=== PATIENT | female | born 1950 | race Hispanic/Latino ===

== ENCOUNTER 2017-03-20 09:29 | Day surgery (SDC) | payer OTHER ==
[2017-03-20 09:29] VITALS: BMI 41.6
[2017-03-20] MEDS ORDERED: Bacitracin 500 Units/gm Oint Foilpak UD TOP ONE (10:23)
[2017-03-20] MEDS ORDERED: Bacitracin 500 Units/gm Oint Foilpak UD ONE (11:11)
[2017-03-20 11:28] LABS: BASO % 0.4 % (0.0-2.0); EOS # 0.1 K/uL (0.0-0.7); EOS % 2.5 % (0.0-4.0); HEMATOCRIT 39.8 % (34.0-47.0); LYMPH # 0.7 K/uL (1.0-4.3); LYMPH % 12.3 % (20.0-40.0); MEAN CORPUSCULAR HEMOGLOBIN 27.2 pg (27.0-31.0); MEAN CORPUSCULAR HGB CONC 32.4 g/dL (33.0-37.0); MONO # 0.4 K/uL (0.0-0.8); MONO % 6.4 % (0.0-10.0); NRBC % 0.1 % (0.0-2.0); RED CELL DISTRIBUTION WIDTH 14.5 % (11.5-14.5); WHITE BLOOD COUNT 5.8 K/uL (4.8-10.8)
--- NOTE | 2017-03-20 11:39 | C.PDOC ---
History Of Present Illness 66-year-old female, PMHx includes Hypertension & DM, presents to the emergency department with complaints of left toe ulcer/pain. Patient states she was seen by Dr Castro recently, and was diagnosed with peripheral arterial disease ( had arterial doppler done). Patient is s/p antibiotics that were given to her by her medical chief technician (finished two weeks ago, name unknown). She denies injuries/ falls, discharge, fever, numbness, nausea/vomiting, shortness of breath, chest pain. Time Seen by Provider: 03/20/17 09:47 Chief Complaint (Nursing): Lower Extremity Problem/Injury History Per: Patient, Other (Dr. Castro) History/Exam Limitations: no limitations Onset/Duration Of Symptoms: Persistent Current Symptoms Are (Timing): Still Present Severity: Moderate Past Medical History Reviewed: Historical Data, Nursing Documentation, Vital Signs Vital Signs: Last Vital Signs Temp 97.4 F L 03/20/17 16:15 Pulse 80 03/20/17 16:15 Resp 18 03/20/17 16:15 BP 127/80 03/20/17 16:15 Pulse Ox 100 03/20/17 16:15 - Medical History PMH: Diabetes, HTN - [facility] Procedures DILATION OF LEFT ANTERIOR TIBIAL ARTERY, PERC APPROACH (05/22/16) DILATION OF LEFT FEMORAL ARTERY, PERCUTANEOUS APPROACH (09/05/16) DILATION OF LEFT PERONEAL ARTERY, PERCUTANEOUS APPROACH (05/22/16) EXTIRPATION OF MATTER FROM L FEM ART, PERC APPROACH (09/05/16) EXTIRPATION OF MATTER FROM L POST TIB ART, PERC APPROACH (05/22/16) Family History: States: No Known Family Hx - Social History Hx Alcohol Use: Yes Hx Substance Use: No - Immunization History Hx Tetanus Toxoid Vaccination: No Hx Influenza Vaccination: No Hx Pneumococcal Vaccination: No Review Of Systems Except As Marked, All Systems Reviewed And Found Negative. Constitutional: Negative for: Fever, Chills Cardiovascular: Negative for: Chest Pain, Palpitations Respiratory: Negative for: Cough, Shortness of Breath Gastrointestinal: Negative for: Nausea, Vomiting Musculoskeletal: Positive for: Foot Pain Skin: Negative for: Rash Neurological: Negative for: Weakness, Numbness, Headache, Dizziness Physical Exam - Physical Exam Appears: Well, Non-toxic, No Acute Distress Skin: Warm, Dry Head: Normacephalic Eye(s): bilateral: Normal Inspection Oral Mucosa: Moist Cardiovascular: Rhythm Regular Respiratory: Normal Breath Sounds, No Rales, No Rhonchi, No Wheezing Extremity: Tenderness, No Pedal Edema, No Calf Tenderness, Capillary Refill (<2 seconds all digits ), No Swelling, Other (Left Lower Ext: Lateral aspect of distal third digit - ulceration approx 1 cm with surrounding erythema, no discharge/fluctuance/induration, dominished but present pedal pulses B/L ) Extremity: Bilateral: Normal ROM Neurological/Psych: Oriented x3 ED Course And Treatment - Laboratory Results Result Diagrams: 03/20/17 11:11 03/20/17 11:11 ECG: Interpreted By Me, Viewed By Me (NSR 80 bpm, left axis deviation, no acute ST/T wave changes) ECG Interpretation: No Acute Changes O2 Sat by Pulse Oximetry: 100 (RA) Pulse Ox Interpretation: Normal - Radiology CXR: Interpreted by Me, Viewed By Me CXR Interpretation: Yes: No Acute Disease. No: Infiltrates Progress Note: Blood work, CXR, EKG ordered and reviewed. Patient given IV Ns bolus, did not want any pain medication. Patient to be admitted under Dr. Castro's service (same day surgery) for angio. - Physician Consult Information Physician Contacted: Ellis Castro Jr. Disposition - Disposition Disposition Time: 11:35 Condition: STABLE - Clinical Impression Clinical Impression: PAD (peripheral artery disease), Toe ulcer Decision To Admit - Pt Status Changed To: Hospital Disposition Of: SDS- Endo,OR,Cath,IR - . Bed Request Type: Same Day Surgery Admitting Physician: Ellis Castro Jr. Patient Diagnosis: PAD (peripheral artery disease), Toe ulcer
[2017-03-20 11:45] LABS: CHLORIDE 100 mmol/L (98-107)
[2017-03-20 11:46] LABS: POTASSIUM 3.5 mmol/L (3.6-5.2); SODIUM 140 mmol/L (132-148)
[2017-03-20 11:48] LABS: BILIRUBIN,TOTAL 0.6 mg/dL (0.2-1.3); CARBON DIOXIDE 28 mmol/L (22-30); GFR AFRICAN-AMERICAN > 60
[2017-03-20 11:49] LABS: ALB/GLOB RATIO 1.3 (1.0-2.1); ALKALINE PHOSPHATASE 85 U/L (38-126); ALT/SGPT 50 U/L (9-52); AST/SGOT 28 U/L (14-36); BLOOD UREA NITROGEN 15 mg/dL (7-17); CALCIUM 8.8 mg/dl (8.6-10.4); GLUCOSE,RANDOM 114 mg/dL (65-105)
--- NOTE | 2017-03-20 11:55 | RAD ---
HISTORY: admission COMPARISON: Chest x-ray performed 05/22/16 TECHNIQUE: Chest, one view. FINDINGS: Examination limited by habitus. LUNGS: Mild right basilar atelectasis. Please note that chest x-ray has limited sensitivity for the detection of pulmonary masses. PLEURA: No significant pleural effusion identified. No definite pneumothorax . CARDIOVASCULAR: Cardiomegaly. OSSEOUS STRUCTURES: No acute osseous abnormality identified. VISUALIZED UPPER ABDOMEN: Elevation of the right hemidiaphragm. OTHER FINDINGS: None. IMPRESSION: Cardiomegaly. Mild right basilar atelectasis.
[2017-03-20 11:58] VITALS: O2SAT 100
[2017-03-20] MEDS ORDERED: Propofol 10 mg/ml Inj (20 ML) ONE (12:34)
[2017-03-20] MEDS ORDERED: Midazolam 2 MG/2 ML VIAL ONE (12:34)
[2017-03-20] MEDS ORDERED: Iodixanol 320 MG/ML 200 ML BOTTLE IV ONE ×2 (12:42→12:45)
[2017-03-20] MEDS ORDERED: Lidocaine 2% Inj (20ml) ONE (12:45)
--- NOTE | 2017-03-20 14:29 | VAS ---
DATE: 03/20/2017 PREOPERATIVE DIAGNOSIS: Ischemic ulceration, left third toe. POSTOPERATIVE DIAGNOSIS: Ischemic ulceration, left third toe. PROCEDURE CARRIED OUT: Aortofemoral angiogram via right groin with selective catheterization of left femoral artery, no intervention. SURGEON: Ellis Castro MD RESEARCH PROFESSOR: None. ANESTHESIOLOGIST: Mr. Jackson ANESTHESIA: Local sedation. A 66-year-old diabetic woman, previous history of 2 interventions on the left posterior tibial artery at the ankle, who presents with ischemic ulceration, gangrene, left third toe. OPERATIVE FINDINGS: The aorta, renal arteries were free of significant occlusive disease. Both comm on, internal and external iliac arteries are free of significant occlusive disease. Both posterior t ibial arteries . Both common femoral and profunda femoris arteries are free of significant occl usive disease. In the left leg, which is the affected leg, the patient had an intact trifurcation. The anterior tibial is occluded and did not reconstitute distally. Peroneal artery had disease in it s most proximal segment and did not reconstitute distally. Posterior tibial was not diseased in its first 2/3, distal third had occluded. There was abrupt reappearance below the ankle with 3 branches. Subsequent to the performance of diagnostic arteriogram, a stiff-angled guidewire was advanced over t he aortic bifurcation and a 7-British sheath positioned in the popliteal artery. The catheter was the n used to selectively cannulate the posterior tibial artery, which went down to the level of the ankl e. However, we were unable to cross and reenter into the lumen of the posterior tibial artery. Desp ite multiple attempts with multiple wires and multiple devices, we abandoned this and terminated the procedure. Blood loss of the procedure was minimal. The operation carried out was aortofemoral oscar ogram with selective catheterization of left femoral artery, attempted balloon angioplasty, but we we re unable to successfully cross the lesion. Ellis Castro Jr., MD cc: 56 TT: 03/20/2017 14:27:53 Confirmation # [id number] Dictation # [id number]
[2017-03-21 12:12] VITALS: BP 127/80; PULSE 80; RESP 18; TEMP 97.4
--- NOTE | 2017-03-25 18:16 | CARD ---
APPROVED REPORT EKG Measurement Heart [id number] <Conclusion> Normal sinus rhythm Voltage criteria for left ventricular hypertrophy Cannot rule out Septal infarct, age undetermined Abnormal ECG
== END 2017-03-20 18:00 | disposition home or self-care (01) ==
LOC: C.ER 09:29 → C.SDS 11:36 → C.ER 11:59 → C.SDS 18:00
PROVIDERS: ATTEND Surgery Vascular Surgery
DX: E11.621 Type 2 diabetes mellitus with foot ulcer (principal); L97.529 Non-pressure chronic ulcer of other part of left foot with unspecified severity; E11.52 Type 2 diabetes mellitus with diabetic peripheral angiopathy with gangrene; I77.1 Stricture of artery; E11.628 Type 2 diabetes mellitus with other skin complications; L03.116 Cellulitis of left lower limb; I10 Essential (primary) hypertension; Z98.890 Other specified postprocedural states; Z79.84 Long term (current) use of oral hypoglycemic drugs; Z79.02 Long term (current) use of antithrombotics/antiplatelets; Z79.899 Other long term (current) drug therapy